=== PATIENT | male | born 1980 | race Caucasian/White ===

== ENCOUNTER 2016-05-10 21:35 | Emergency (ER) ==
[2016-05-10] MEDS ORDERED: PHENERGAN IM ONE (23:04)
[2016-05-10] MEDS ORDERED: MORPHINE IM ONE (23:04)
[2016-05-10] MEDS ORDERED: TORADOL IM ONE (23:05)
--- NOTE | 2016-05-10 23:10 | PROVIDER DOCUMENTATION ---
HPI-Headache - General Chief Complaint: Numbness Stated Complaint: LEFT SIDE NUMBNESS/SPEECH DIFFUCULTY Time Seen by Provider: 05/10/16 22:45 Source: patient Allergies/Adverse Reactions: Patient Allergies Allergy/AdvReac Type Severity Reaction Status Date / Time No Known Allergies Allergy Verified 04/04/16 11:06 Home Medications: Amlodipine [Norvasc] 10 mg PO DAILY 03/30/14 Metoprolol [Lopressor] 50 mg PO BID 07/23/15 Lisinopril 40 mg PO DAILY 04/05/16 PRAVAstatin [Pravachol] 40 mg PO QHS 04/05/16 - History of Present Illness-Headache Nature of Presenting Problem: 35 y/o WM presents to the ED with a headache since Monday, 5 days ago with nausea and vomiting the past 2 days but not today. Pt claims the left side of face is numb and left arm and leg tingle. Pt had been seeing Dr Flores for his pain and given Topmax but not taking it. states they can not afford the medicine. Headache Location: reports: global Quality of Pain: reports: aching Severity: reports: moderate, severe Onset/Duration: reports: 5 days ago Timing: reports: still present Headache History: reports: frequent headaches Any recent trauma/injury?: reports: none Headache severity at the maximum: severe Headache Exacerbated by:: reports: light Modifying Factors: improves with: nothing Review of Systems - Adult - REVIEW OF SYSTEMS - ADULT Constitutional: denies: chills, fever Eyes: reports: no symptoms reported Ears, Nose, Mouth & Throat: reports: no symptoms reported Cardiovascular: denies: chest pain, edema Respiratory: reports: no symptoms reported Gastrointestinal: reports: no symptoms reported Genitourinary: reports: no symptoms reported Musculoskeletal: reports: no symptoms reported Integumentary: reports: no symptoms reported Neurological: reports: headache/migraines, numbness. denies: dizziness/vertigo , slurred speech, syncope, tremors Psychiatric: reports: no symptoms reported Endocrine: reports: no symptoms reported Hematologic/Lymphatic: reports: no symptoms reported Allergic/Immunologic: reports: no symptoms reported All Other Systems: Reviewed and Negative Past History - Adult - PAST MEDICAL HISTORY-ADULT Review of Records: reports: Old Records Reviewed, Nursing Assessment Review, Medications Reviewed Major Childhood Illnesses: reports: denies history Cardiovascular: reports: HTN, heart valve problem (mitral valve prolapse) Respiratory: reports: denies history Gastrointestinal: reports: other (H-Pylori) Obstetrical/Gynecological: reports: denies history Genitourinary: reports: denies history Musculoskeletal: reports: denies history Neurological: reports: CVA Endocrine/Immune: reports: denies history Other Conditions: reports: denies history - PRIOR SURGERIES/PROCEDURES Surgical/Procedure History: reports: cholecystectomy - IMMUNIZATION STATUS Childhood Immunizations: See Nurse Assessment Flu Vaccine: See Nurse Assessment - FAMILY HISTORY Family History: reviewed, not pertinent Physical Exam- Neurological - Physical Exam-Neuro Initial Vital Signs Reviewed: Yes General Appearance: appears well, alert, no apparent distress Eye Exam: bilateral eye: normal inspection, PERRL, EOMI HENMT: normal ENT inspection, TMs normal, pharynx normal Head Injury: no evidence of injury. 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 Exam: normal hearing, normal speech, PERRL Motor/Sensory: no motor deficit, no sensory deficit, no pronator drift Neurologic: grossly normal, no motor/sensory deficits Integumentary: normal color, normal turgor, warm/dry Psych/Mental Status: normal mood/affect, normal thought content, normal thought process, oriented x 3 Progress - PLAN OF CARE/RESULTS Progress/Plan/Lab Results: Orders Category Date Time Status Ketorolac [Toradol] Med 05/10/16 23:05 Discontinued 60 mg IM NOW ONE Morphine Med 05/10/16 23:04 Discontinued 8 mg IM NOW ONE Promethazine [Phenergan] Med 05/10/16 23:04 Discontinued 50 mg IM NOW ONE Vital Signs Temp Pulse Resp BP Pulse Ox 05/10/16 21:38 98 F 77 18 173/103 98 No Known Allergies Allergy (Verified 04/04/16 11:06) Amlodipine [Norvasc] 10 mg PO DAILY 03/30/14 Metoprolol [Lopressor] 50 mg PO BID 07/23/15 Lisinopril 40 mg PO DAILY 04/05/16 PRAVAstatin [Pravachol] 40 mg PO QHS 04/05/16 Aspirin 325 mg PO DAILY #30 tablet 04/06/16 Butalbital/APAP/Caffeine [Fioricet] 1 each PO Q4H PRN PRN #30 tablet 04/06/16 Topiramate [Topamax] 25 mg PO DAILY #30 tablet 04/06/16 Metoclopramide [Reglan] 10 mg PO Q6HR #30 tablet 05/10/16 Rizatriptan Benzoate [Maxalt] 10 mg PO DAILY PRN #6 tablet 05/10/16 Departure - Departure Time of Disposition Order: 23:07 DIAGNOSIS: Migraine Qualifiers: Migraine type: unspecified Status migrainosus presence: with status migrainosus Intractability: intractable Qualified Code(s): G43.911 - Migraine, unspecified, intractable, with status migrainosus Disposition: HOME 01 Certified Medical Emergency: Emergent Condition: Stable Additional Instructions: Follow up with PCP to manage blood pressure and migraines ED Follow Up Instructions: You have been treated by a care provider in the Emergency Department. These instructions are being provided to you so you can have an understanding of how to care for yourself upon discharge. Upon discharge from the Emergency Department, you are responsible for making arrangements for follow-up care by a physician of your choice. Take all prescribed medications as directed. Return to the Emergency Department immediately for any new or worsening symptoms. You may call the Physician Referral phone number at [phone] to obtain a list of Physicians who are taking new patients. Attestation - Scribe Verification/Attestation Scribe:: Tato Cedillo Acting as Scribe for:: Chris Beaver Scribe documention review:: This chart was documented by a scribe and accurately reflects the service the provider performed and the decisions made by the provider.
[2016-05-11 00:30] VITALS: BP 160/78
== END 2016-05-11 00:29 | disposition home or self-care (01) ==
LOC: P.ED 21:35
DX: G43.911 Migraine, unspecified, intractable, with status migrainosus (principal); R51 Headache; R20.0 Anesthesia of skin; I10 Essential (primary) hypertension; I34.1 Nonrheumatic mitral (valve) prolapse; Z86.73 Personal history of transient ischemic attack (TIA), and cerebral infarction without residual deficits; Z79.899 Other long term (current) drug therapy; Z79.82 Long term (current) use of aspirin
CPT/HCPCS: 96372; J1885; J2270; J2550